=== PATIENT | male | born 1990 | race Caucasian/White ===

== ENCOUNTER 2018-09-25 09:20 | Emergency (ER) | payer OTHER, BC ==
[~2018-09-25] VITALS: Ht 188 cm; Wt 136.1 kg
[2018-09-25] MEDS ORDERED: fentaNYL INJECTION 100 MCG/2 ML AMP IVP ONE ×3 (10:00→11:30)
[2018-09-25] MEDS ORDERED: CLINDAMYCIN 900 MG/50 ML IVPB 50 ML IV ONE (10:00)
[2018-09-25 10:03] LABS: HEMOGLOBIN 15.5 G/DL (13.3-17.7); MEAN PLATELET VOLUME 10.5 FL (7.4-10.4); RED CELL DISTRIBUTION WIDTH 13.1 % (10.0-14.5); WHITE BLOOD COUNT 7.6 10^3/uL (4.3-11.0)
[2018-09-25 10:26] LABS: ALANINE AMINOTRANSFERASE 40 U/L (0-55); ALBUMIN 4.7 GM/DL (3.2-4.5); ALKALINE PHOSPHATASE 42 U/L (40-136); BILIRUBIN,DIRECT 0.4 MG/DL (0.0-0.3); BILIRUBIN,INDIRECT 0.5 MG/DL; BILIRUBIN,TOTAL 0.9 MG/DL (0.1-1.0); BUN/CREATININE RATIO 14; CALCIUM 9.9 MG/DL (8.5-10.1); CARBON DIOXIDE 22 MMOL/L (21-32); CHLORIDE 104 MMOL/L (98-107); CREATININE SERUM 1.12 MG/DL (0.60-1.30); GFR ESTIMATED > 60; GLUCOSE 99 MG/DL (70-105); POTASSIUM 3.7 MMOL/L (3.6-5.0); SODIUM 141 MMOL/L (135-145); TOTAL PROTEIN 8.4 GM/DL (6.4-8.2)
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
[2018-09-25] MEDS ORDERED: oxyCODONE/APAP 5/325MG (PERCOCET 5) TABLET ONE (10:57)
[2018-09-25] MEDS ORDERED: TETANUS,DIPTH,PERTUSS P/F (BOOSTRIX) 0.5 ML VIAL IM ONE (11:30)
[2018-09-25] MEDS ORDERED: oxyCODONE/APAP 5/325MG (PERCOCET 5) TABLET PO ONE (11:30)
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
[2018-09-25] MEDS ORDERED: KETOROLAC 30 MG/ML VIAL IVP ONE (13:30)
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
[2018-09-25] MEDS ORDERED: OXYC1TAB87 PO (14:29)
[2018-09-25] MEDS ORDERED: CLIN300C11 PO (14:29)
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
[2018-09-25] MEDS ORDERED: DOCU-143 PO (14:33)
[2018-09-25 14:35] VITALS: BP 135/79
== END 2018-09-25 14:35 | disposition home or self-care (01) ==
LOC: ER 09:25
DX: S91.031A Puncture wound without foreign body, right ankle, initial encounter (principal); Z23 Encounter for immunization; W34.00XA Accidental discharge from unspecified firearms or gun, initial encounter
CPT/HCPCS: 36415; 73610; 80048; 80076; 80320; 85027; 90471; 90715; 93041; 96365; 96375; 96376

== ENCOUNTER → 2018-09-29 | Outpatient (CLI) | payer OTHER, BC ==
[~2018-09-29] MED LIST: CLIN300C11 PO; DOCU-143 PO; OXYC1TAB87 PO
== END ==
LOC: ORTHO 10:02
PROVIDERS: ATTEND Orthopaedic Surgery
DX: S91.031A Puncture wound without foreign body, right ankle, initial encounter (principal); W34.00XA Accidental discharge from unspecified firearms or gun, initial encounter
CPT/HCPCS: 99203

== ENCOUNTER → 2018-10-11 | Outpatient (CLI) | payer OTHER, BC | LOC: ORTHO 11:48 | PROVIDERS: ATTEND Orthopaedic Surgery | DX: S91.031A Puncture wound without foreign body, right ankle, initial encounter (principal); W34.00XA Accidental discharge from unspecified firearms or gun, initial encounter | CPT/HCPCS: 99213 ==

== ENCOUNTER → 2018-10-25 | Outpatient (CLI) | payer OTHER, BC | LOC: ORTHO 09:26 | PROVIDERS: ATTEND Orthopaedic Surgery | DX: S91.031A Puncture wound without foreign body, right ankle, initial encounter (principal); W34.00XA Accidental discharge from unspecified firearms or gun, initial encounter | CPT/HCPCS: 99213 ==

== ENCOUNTER → 2018-11-15 | Outpatient (CLI) | payer OTHER, BC | LOC: ORTHO 09:02 | PROVIDERS: ATTEND Orthopaedic Surgery | DX: S91.031A Puncture wound without foreign body, right ankle, initial encounter (principal); W34.00XA Accidental discharge from unspecified firearms or gun, initial encounter | CPT/HCPCS: 99213 ==

== ENCOUNTER → 2018-12-03 | Outpatient (CLI) | payer OTHER, BC | LOC: ORTHO 08:55 | PROVIDERS: ATTEND Orthopaedic Surgery | DX: S91.031A Puncture wound without foreign body, right ankle, initial encounter (principal); W34.00XA Accidental discharge from unspecified firearms or gun, initial encounter | CPT/HCPCS: 99213 ==

== ENCOUNTER → 2018-12-24 | Outpatient (CLI) | payer OTHER, BC | LOC: ORTHO 09:10 | PROVIDERS: ATTEND Orthopaedic Surgery | DX: S91.031A Puncture wound without foreign body, right ankle, initial encounter (principal); W34.00XA Accidental discharge from unspecified firearms or gun, initial encounter | CPT/HCPCS: 99213 ==

== ENCOUNTER → 2019-01-19 | Outpatient (CLI) | payer OTHER, BC | LOC: ORTHO 09:58 | PROVIDERS: ATTEND Orthopaedic Surgery | DX: S91.031A Puncture wound without foreign body, right ankle, initial encounter (principal); W34.00XA Accidental discharge from unspecified firearms or gun, initial encounter | CPT/HCPCS: 99213 ==

== ENCOUNTER → 2019-02-14 | Outpatient (CLI) | payer OTHER, BC | LOC: ORTHO 10:28 | PROVIDERS: ATTEND Orthopaedic Surgery | DX: S91.031A Puncture wound without foreign body, right ankle, initial encounter (principal); W34.00XA Accidental discharge from unspecified firearms or gun, initial encounter | CPT/HCPCS: 99213 ==

== ENCOUNTER 2021-09-06 10:23 | Outpatient (RCR) | payer OTHER ==
[~2021-09-06 10:23] MED LIST changes: +CLIN-144 PO; -CLIN300C11 PO
== END 2021-09-17 | disposition home or self-care (01) ==
PROVIDERS: ATTEND Physical Medicine & Rehabilitation
DX: M54.50 Low back pain, unspecified (principal)